=== PATIENT | female | born 1955 | race African-American/Black ===

== ENCOUNTER 2018-05-15 22:23 | Emergency (ER) | payer BC | END 2018-05-15 23:00 | disposition home or self-care (01) | LOC: ERS 22:23 | DX: H66.91 Otitis media, unspecified, right ear (principal); I10 Essential (primary) hypertension | CPT/HCPCS: 99282 ==

== ENCOUNTER 2018-06-12 16:46 | Observation (INO) | payer BC ==
--- NOTE | 2018-06-12 18:50 | CT ---
CT BRAIN: 06/12/2018 PROVIDED CLINICAL HISTORY: Headache. COMPARISON: None. FINDINGS: The ventricular system appears normal in size and morphology. There is no evidence for intracranial hemorrhage or mass effect. The extracranial soft tissues and osseous structures demonstrate an unrem arkable CT appearance, with the exception of a small amount of right probable mastoid fluid. IMPRESSION: No evidence for intracranial hemorrhage or mass effect. POS: [facility]
[2018-06-12] MEDS ORDERED: Metoclopramide 10 MG/10 ML UDCUP ONE (18:55)
[2018-06-12] MEDS ORDERED: Metoclopramide HCl 10 MG TAB ONE (18:55)
[2018-06-12] MEDS ORDERED: diphenhydrAMINE 50 MG/ML VIAL ONE (18:55)
[2018-06-12] MEDS ORDERED: Metoclopramide HCl 10 MG/2 ML VIAL ONE (18:56)
[2018-06-12 19:05] LABS: Hemoglobin 13.9 g/dL (12.0-16.0); Mean Corpuscular HGB CONC 33.1 g/dL (32.0-36.0); Mean Corpuscular Hemoglobin 30.6 pg (27.0-31.0); Mean Corpuscular Volume 92.3 fL (78.0-98.0); Mean Platelet Volume 8.7 fL (7.4-10.4); Platelet Count 194 thou/uL (130-400); RBC Distribution Width 12.5 % (11.5-14.5); Red Blood Cell (RBC) Count 4.55 mill/uL (4.20-5.40); White Blood Cell (WBC) Count 6.8 thou/uL (4.8-10.8)
[2018-06-12 19:19] LABS: Eosinophils 6 % (0-10); Lymphocytes 38 % (21-51); MDiff Complete? YES; Monocytes 5 % (0-10); Neutrophil 47 % (42-75); PLT Morphology Comment Appears Adequate; RBC Morphology Normal; Reactive Lymphocytes 4 % (0-10)
[2018-06-12 19:24] LABS: ALT (SGPT) 14 U/L (8-55); AST (SGOT) 18 U/L (5-34); Albumin 4.3 g/dL (3.4-4.8); Alkaline Phosphatase 108 U/L (40-150); Anion Gap 13 mmol/L (10-20); BUN (Urea Nitrogen) 21 mg/dL (9.8-20.1); Bilirubin, Total 0.4 mg/dL (0.2-1.2); CK (CPK) 160 U/L (29-168); Calc. Creatinine Clearance 0 mL/min (70-130); Calcium 9.3 mg/dL (7.8-10.44); Carbon Dioxide 24 mmol/L (23-31); Chloride 105 mmol/L (98-107); Estimated GFR-MDRD 83; Globulin 3.8 g/dL (2.4-3.5); Glucose 95 mg/dL (80-115); Lipase 18 U/L (8-78); Potassium 3.9 mmol/L (3.5-5.1); Protein, Total 8.1 g/dL (6.0-8.3); Sodium 138 mmol/L (136-145)
[2018-06-12 19:28] LABS: CKMB 1.7 ng/mL (0-6.6); Troponin I Less than 0.010 ng/mL (< 0.028)
--- NOTE | 2018-06-12 19:29 | RAD ---
PORTABLE CHEST ONE VIEW: 06/12/2018 6:11 p.m. HISTORY: Hypertension. Headache. FINDINGS: The heart size is normal. The lungs are well expanded without focal areas of consolidation, pneumoth orax, or pleural effusions. IMPRESSION: No radiographic evidence of acute cardiopulmonary process. POS: [facility]
[2018-06-12] MEDS ORDERED: Labetalol HCl 100 MG/20 ML VIAL ONE (20:31)
[2018-06-12 22:15] LABS: Troponin I Less than 0.010 ng/mL (< 0.028)
--- NOTE | 2018-06-12 23:39 | HP ---
DATE OF ADMISSION: 06/12/2018 CHIEF COMPLAINT: Left arm weakness and numbness. HISTORY OF PRESENT ILLNESS: This is a 62-year-old female. 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 She presented with a complaint of numbness on the face and numbness of the left hand which started on Tuesday, 2 days ago, but she presented as the patient was having persistent numbne ss since 2 days. She denies having any chest pain. She has a history of hypertension and she admits to not following this low salt diet. Otherwise, she denies having any nausea, vomiting, diarrhea or constipation. No dizziness. PAST MEDICAL HISTORY: 1. Hypertension. 2. Hyperlipidemia. 3. Peptic ulcer disease. PAST SURGICAL HISTORY: Hernia repair. SOCIAL HISTORY: The patient is not a known smoker. No history of alcohol, no history of illicit eli g use. She works as a cook at [employer]. FAMILY HISTORY: No significant family history of coronary artery disease, but hypertension runs in t he family. ALLERGIES: No known drug allergies. HOME MEDICATIONS: 1. Docusate 100 mg p.o. b.i.d. 2. Felodipine 5 mg p.o. daily. 3. Hydrocodone. 4. Pantoprazole 40 mg p.o. daily. REVIEW OF SYSTEMS: All 12 systems are reviewed with the patient thoroughly and found to be negative at this time. Systems reviewed are HEENT, CVS, PURCHASING CLERK, respiratory, GI, , musculoskeletal, skin, inte gumentary and psychiatric. The following complete review of systems was negative, unless otherwise mentioned in the HPI or below: Constitutional: Weight loss or gain, sense of well-being, ability to conduct usual activities, exerc ise tolerance. Skin/Breast: Rash, itching, changes in hair growth or loss, nail changes, breast lumps, tenderness, swelling, nipple discharge. Eyes: Vision, double vision, tearing, blind spots, pain. ENT/Mouth: Headaches (location, time of onset, duration, precipitating factors), vertigo, lightheadedness, injury. Vision, double vision, tearing, blind spots, pain, nose b leeding, colds, obstruction, discharge, dental difficulties, gingival bleeding, dentures, neck stiffn ess, pain, tenderness, masses in thyroid or other areas Cardiovascular: Precordial pain, substernal distress, palpitations, syncope, dyspnea on exertion, or thopnea, nocturnal paroxysmal dyspnea, edema, cyanosis, hypertension, heart murmurs, varicosities, ph lebitis, claudication. Respiratory: Pain, shortness of breath, wheezing, stridor, cough, hemoptysis, fever or night sweats Gastrointestinal: Poor appetite, dysphagia, indigestion, abdominal pain, heartburn, eructation, naus ea, vomiting, hematemesis, jaundice, constipation, or diarrhea, abnormal stools (carlene-colored, tarry, bloody, greasy, foul smelling), flatulence, hemorrhoids, recent changes in bowel habits. Genitourinary: Urgency, frequency, dysuria, nocturia, hematuria, polyuria, oliguria, unusual (or kade nge in) color of urine, stones, hesitancy, change in size of stream, dribbling, acute retention or in continence, libido, potency. Musculoskeletal: Pain, swelling, redness or heat of muscles or joints, limitation, of motion, muscular weakness, atrophy, cramps. Neurologic/Psychiatric: Convulsions, paralyses, tremor, incoordination, parasthesias, difficulties w ith memory of speech, sensory or motor disturbances, or muscular coordination (ataxia, tremor), emoti onal problems, anxiety, depression, previous psychiatric care, unusual perceptions, hallucinations. Allergy/Immunologic: Skin rash, anemia, bleeding tendency, polydipsia, polyuria, intolerance to heat or cold. PHYSICAL EXAMINATION: VITAL SIGNS: Blood pressure is 156/87, heart rate is 88, respiratory rate is 18 and saturation 98%. GENERAL: The patient is moderately built and moderately nourished, does not appears to be in acute d istress at this time. HEENT: Atraumatic, normocephalic. PERRLA. Extraocular movements were intact. Oral mucosa is pink and moist. CARDIOVASCULAR: S1, S2 normal. No murmurs, rubs or gallops. LUNGS: Bilateral air entry was equal. No wheezing, no crackles. ABDOMEN: Soft, nontender, no guarding, no rebound tenderness. Bowel sounds normal. MUSCULOSKELETAL: No calf tenderness. No pedal edema. No joint tenderness, no joint swelling. SKIN: No cyanosis or erythema, no rash, no pallor. NEUROLOGIC: Cranial nerve examination is noted. No evidence of any acute neurologic deficits was no fatmata. Motor is the same and sensory are normal both sides. PSYCHIATRIC: No signs of suicidal ideation. No signs of yvan were noted. LABORATORY DATA: WBC 6.8, hemoglobin 13.9, hematocrit is 41.9, platelets of 194. Sodium 130, potass ium 3.9, chloride 105, bicarb is 24, BUN is 21, creatinine 0.84. IMAGING DATA: CT of the head was done which did not show any evidence of acute intracranial hemorrha ge. Chest x-ray was unremarkable. ASSESSMENT: 1. Transient ischemic attack. 2. Uncontrolled hypertension. 3. Moderate dehydration. PLAN: 1. Plan is to closely monitor this patient with neuro checks every 4 hours and we will continue with aspirin at this time. CT head was negative, so we will plan for an MRI of the brain in the morning. If this comes back negative, patient could be discharged home. We will do a PT, OT evaluation prio r to discharge to look for any need for rehabilitation placements. We will check the lipid profile i n the morning. Plan to treat for her LDL is less and LDL is more than 100. 2. Hypertension. We will continue the patient on the lisinopril 10 mg p.o. daily. Advised to keep blood pressure less than 135/75. 3. Deep venous thrombosis prophylaxis, Lovenox. I spent 65 minutes with this patient at the time of dictation.
[2018-06-13 01:17] LABS: Troponin I Less than 0.010 ng/mL (< 0.028)
[2018-06-13] MEDS ORDERED: Ondansetron ODT 4 MG TAB SL PRN (03:17)
[2018-06-13] MEDS ORDERED: Ondansetron HCl/PF 4 MG/2 ML Vial IVP PRN (03:17)
[2018-06-13] MEDS ORDERED: Acetaminophen 325 MG TAB PO PRN (03:17)
[2018-06-13] MEDS ORDERED: Ondansetron ODT 4 MG TAB PO PRN (03:36)
[2018-06-13] MEDS ORDERED: hydrALAZINE 20 MG/ML VIAL SLOW IVP PRN (03:36)
[2018-06-13] MEDS ORDERED: HYDROcodone/Acetaminophen 5/325 mg Tablet PO PRN (03:36)
[2018-06-13 03:59] VITALS: BMI 35.3
[2018-06-13] MEDS: Docusate 100 MG CAP PO SCH ×2 (08:49→20:29)
[2018-06-13] MEDS: Aspirin 81 mg Enteric Coated Tablet PO SCH (08:51)
[2018-06-13] MEDS: Lisinopril 10 MG TAB PO SCH (08:52)
[2018-06-13] MEDS: Heparin 5,000 UNITS/ML VIAL SC SCH ×2 (08:54→20:28)
[2018-06-13] MEDS ORDERED: Famotidine/PF 20 mg/2ml Vial SLOW IVP SCH (09:00)
[2018-06-13] MEDS ORDERED: Lorazepam 2 MG/ML VIAL SLOW IVP SCH (09:00)
[2018-06-13] MEDS ORDERED: Enoxaparin Sodium 40 MG/0.4 ML SYRINGE SC SCH (09:00)
[2018-06-13] MEDS ORDERED: Docusate 100 MG CAP PO SCH (09:00)
--- NOTE | 2018-06-13 12:47 | ULT ---
ULTRASOUND DOPPLER DUPLEX CAROTID: Date: 06-13-18 History: 62-year-old female with stroke symptoms: left upper extremity weakness, dizziness. Technique: Grayscale, color flow, and spectral analysis of major arteries of neck. FINDINGS: There is mild atherosclerotic plaque at the bilateral proximal internal carotid arteries, including c arotid bulbs and proximal external carotid arteries. High peak systolic velocities in the internal carotid arteries are 70 cm/s on the right and 40 cm/s o n the left. ICA/CCA ratios are 0.9 on the right and 0.4 on the left. Vertebral artery flow is antegrade bilaterally. IMPRESSION: 1. Mild atherosclerotic plaque at the origins of the bilateral internal carotid arteries. 2. No hemodynamically significant stenosis. POS: [facility]
--- NOTE | 2018-06-13 14:58 | MRI ---
BRAIN MRI WITHOUT CONTRAST: Date: 06/13/18 COMPARISON: None. HISTORY: Tingling, numbness, headaches. TECHNIQUE: Multiplanar, multisequence MR imaging of the brain is obtained without contrast. FINDINGS: The diffusion-weighted imaging demonstrates no evidence for acute infarction. The axial gradient echo imaging demonstrates no evidence for intracranial hemorrhage. There is a nonspecific right-sided mastoid effusion. Arterial flow-voids at axial level of skull base appear grossly unremarkable on the T2-weighted image . Multiple subcentimeter foci of increased T2 and FLAIR signal are seen within the periventricular, shannon p, and subcortical white matter, evidence of small vessel disease. Regional bone marrow signal intens ity is within normal limits. There is degenerative disc disease at C4-5, incompletely assessed, with probable mild central canal and bilateral neural foraminal stenosis, right greater than left. IMPRESSION: 1. Nonspecific right mastoid effusion. 2. Small vessel disease. 3. No evidence for intracranial hemorrhage or acute infarction. POS: [facility]
[2018-06-13] MEDS: Famotidine 20 MG TAB PO SCH (20:29)
[2018-06-13] MEDS ORDERED: Atorvastatin Calcium 40 MG TAB PO SCH (21:00)
--- NOTE | 2018-06-14 00:34 | CON ---
DATE OF CONSULTATION: 06/13/2018 REFERRING PHYSICIAN: Mehul Shoemaker MD REASON FOR CONSULTATION: Left-sided numbness. HISTORY OF PRESENT ILLNESS: Ms. Wynn is a pleasant 62-year-old -[place] female who has bee n consulted for evaluation of left-sided numbness. The patient reports that over the past few days, she has been having episodes of numbness on the left side of the face, arm, and leg. These episodes are intermittent and there are no exacerbating or alleviating factors. She also gets dizziness, wher e she feels as if everything is spinning and headache in the top of the head. She notes that she has been under a lot of stress, as her youngest son is being deployed for service and she is ve ry concerned about that. She notes that when she is stressed, these symptoms seemed to be more frequ ent. As her symptoms were happening more frequently on yesterday, she decided to present to the [facility]. She currently denies any headache, chest pain, palpitation, nausea, vomiting, abdominal pain, numbness, tingling, or weakness. PAST MEDICAL HISTORY: Significant for hypertension, hyperlipidemia, peptic ulcer disease. PAST SURGICAL HISTORY: Significant for hernia repair. SOCIAL HISTORY: She denies smoking, alcohol use, or illicit drug use. 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 FAMILY HISTORY: Noncontributory. CURRENT MEDICATIONS: Please review MAR. ALLERGIES: No known drug allergies. REVIEW OF SYSTEMS: As mentioned in HPI, otherwise negative. PHYSICAL EXAMINATION: VITAL SIGNS: Blood pressure of 137/61, pulse of 62, temperature of 98.1, respirations 16, O2 sats 99 % on room air. GENERAL: Well-developed, well-nourished female in no apparent distress. RESPIRATORY: Clear to auscultation bilaterally. CARDIOVASCULAR: Regular rate and rhythm. NEUROLOGIC: Mental status: The patient is awake, alert, oriented x3. Speech and language: Fluent speech. Cranial nerves: Pupils are 3 mm and reactive. Visual idas are intact. Extraocular muscl es are intact. No nystagmus noted. Face is symmetric. Tongue and uvula are midline. Motor exam sh owed normal tone and bulk with 5/5 strength in both upper and lower extremities. Sensory: Sensation is intact and symmetric. Deep tendon reflexes, 2+ reflexes in both upper and lower extremities. Ba binski: Plantar responses flexion bilaterally. Coordination intact to [id number] and finger tapping bilaterally. LABORATORY DATA: Reviewed, which included CBC and CMP, which are essentially normal. IMAGING STUDIES: MRI brain without contrast was reviewed, which showed no acute intracranial abnorma lity. Carotid Doppler results were reviewed, which showed no acute hemodynamically significant steno sis on either side. IMPRESSION: 1. Left-sided numbness. 2. Increased stress and anxiety. 3. Headaches. Ms. Wynn is a pleasant 62-year-old female, who presented with intermittent episode s of left-sided numbness. This could be suggestive of transient ischemic attack. This could also be secondary to increased stress and anxiety. I have reviewed her MRI brain, which is essentially norm al. I have advised her to follow up with her primary care physician. I have also advised her to lyn e aspirin 81 mg daily for secondary stroke prevention. The patient is okay to be discharged to home from neurological standpoint. No further neurological workup needed from my standpoint. Thank you for consultation.
[2018-06-14 05:37] LABS: #Eosinphils 0.2 thou/uL (0.0-0.7); #Monocytes 0.5 thou/uL (0.11-0.59); #Neutrophils 1.9 thou/uL (1.40-6.50); %Basophils 0.9 % (0.0-1.0); %Eosinophils 4.8 % (0.0-10.0); %Monocytes 9.8 % (0.0-10.0); %Neutrophils 41.5 % (42.0-75.0); Hemoglobin 12.6 g/dL (12.0-16.0); Mean Corpuscular HGB CONC 34.2 g/dL (32.0-36.0); Mean Corpuscular Hemoglobin 31.7 pg (27.0-31.0); Mean Corpuscular Volume 92.8 fL (78.0-98.0); Mean Platelet Volume 8.7 fL (7.4-10.4); Platelet Count 172 thou/uL (130-400); RBC Distribution Width 12.5 % (11.5-14.5); Red Blood Cell (RBC) Count 3.98 mill/uL (4.20-5.40); White Blood Cell (WBC) Count 4.6 thou/uL (4.8-10.8)
[2018-06-14 05:40] LABS: Anion Gap 12 mmol/L (10-20); BUN (Urea Nitrogen) 19 mg/dL (9.8-20.1); Calc. Creatinine Clearance 108 mL/min (70-130); Calcium 9.1 mg/dL (7.8-10.44); Carbon Dioxide 27 mmol/L (23-31); Cardiac Risk 3.8 (Less than 4.5); Chloride 105 mmol/L (98-107); Cholesterol 195 mg/dl (< 200 Desired); Estimated GFR-MDRD 88; Glucose 93 mg/dL (80-115); HDL Cholesterol 52 mg/dL (>60 Neg Risk); LDL Cholesterol, Calculated 130 mg/dL; Potassium 3.6 mmol/L (3.5-5.1); Sodium 140 mmol/L (136-145); Triglycerides 65 mg/dL (Less than 150)
--- NOTE | 2018-06-14 06:45 | PDOC.PN ---
- Subjective Encounter Start Date: 06/13/18 Encounter Start Time: 10:30 Subjective: pt up in bed no complains - Objective Resuscitation Status: Resuscitation Status FULL:Full Resuscitation Vital Signs & Weight: Vital Signs (12 hours) Temp Pulse Resp BP Pulse Ox 06/14/18 04:00 98.3 F 65 18 129/72 96 06/14/18 00:00 97.3 F L 60 18 136/56 L 96 06/13/18 20:10 97.7 F 64 18 06/13/18 20:00 97.7 F 64 18 145/79 H 95 Weight Weight 206 lb 4.8 oz I&O: 06/12/18 06/13/18 06/14/18 06:59 06:59 06:59 Intake Total 510 602 Balance 510 602 Result Diagrams: 06/14/18 04:50 06/14/18 04:50 Phys Exam - Physical Examination HEENT: PERRLA, moist MMs, sclera anicteric, TM's clear, oral pharynx no lesions , 2+ tonsils Neck: no nodes, no JVD, supple, full ROM Respiratory: no wheezing, no rales, no rhonchi, wheezing present, clear to auscultation bilateral Cardiovascular: RRR, no significant murmur, no rub, gallop, irregular Gastrointestinal: soft, non-tender, no distention, positive bowel sounds Dx/Plan (1) TIA (transient ischemic attack) Code(s): G45.9 - TRANSIENT CEREBRAL ISCHEMIC ATTACK, UNSPECIFIED Status: Acute (2) HTN (hypertension) Code(s): I10 - ESSENTIAL (PRIMARY) HYPERTENSION Status: Acute - Plan will await for echo/carotid and MRI brain * . Review of Systems - Review of Systems ENT: negative: Ear Pain, Ear Discharge, Nose Pain, Nose Discharge, Nose Congestion, Mouth Pain, Mouth Swelling, Throat Pain, Throat Swelling, Other Respiratory: negative: Cough, Dry, Shortness of Breath, Hemoptysis, SOB with Excertion, Pleuritic Pain, Sputum, Wheezing Cardiovascular: negative: chest pain, palpitations, orthopnea, paroxysmal nocturnal dyspnea, edema, light headedness, other Gastrointestinal: negative: Nausea, Vomiting, Abdominal Pain, Diarrhea, Constipation, Melena, Hematochezia, Other - Medications/Allergies Allergies/Adverse Reactions: Allergies Allergy/AdvReac Type Severity Reaction Status Date / Time No Known Allergies Allergy Verified 06/13/18 03:42 Medications: Current Medications Hydrocodone Bitart/Acetaminophen (Sipsey 5/325) 1 tab PO Q4H PRN PRN Reason: Moderate Pain (4-6) Aspirin (Ecotrin) 81 mg PO DAILY [facility] Last Admin: 06/13/18 08:51 Dose: 81 mg Atorvastatin Calcium (Lipitor) 40 mg PO HS [facility] Last Admin: 06/13/18 20:29 Dose: 40 mg Docusate Sodium (Colace) 100 mg PO BID [facility] Last Admin: 06/13/18 20:29 Dose: 100 mg Enoxaparin Sodium (Lovenox) 40 mg SC 0900 [facility] Last Admin: 06/13/18 08:53 Dose: 40 mg Famotidine (Pepcid) 20 mg PO BID [facility] Last Admin: 06/13/18 20:29 Dose: 20 mg Felodipine (Plendil) 5 mg PO DAILY [facility] Last Admin: 06/13/18 08:51 Dose: 5 mg Heparin Sodium (Porcine) (Heparin) 5,000 units SC Q12HR [facility] Last Admin: 06/13/18 20:28 Dose: 5,000 units Hydralazine HCl (Apresoline) 10 mg SLOW IVP Q4H PRN PRN Reason: BP > 220/110 Lisinopril (Zestril) 10 mg PO DAILY [facility] Last Admin: 06/13/18 08:52 Dose: 10 mg Ondansetron HCl (Zofran Odt) 4 mg PO Q6H PRN PRN Reason: Nausea/Vomiting Pantoprazole Sodium (Protonix) 40 mg PO DAILY [facility] Last Admin: 06/13/18 08:52 Dose: 40 mg Sodium Chloride (Flush - Normal Saline) 10 ml IVF Q12HR [facility] Last Admin: 06/13/18 20:48 Dose: Not Given Sodium Chloride (Flush - Normal Saline) 10 ml IVF PRN PRN PRN Reason: Saline Flush
[2018-06-14] MEDS: Lisinopril 10 MG TAB PO SCH (08:49)
[2018-06-14] MEDS: Docusate 100 MG CAP PO SCH (08:49)
[2018-06-14] MEDS: Famotidine 20 MG TAB PO SCH (08:49)
[2018-06-14] MEDS: Aspirin 81 mg Enteric Coated Tablet PO SCH (08:49)
[2018-06-14 12:07] VITALS: BP 132/59; TEMP 98.7
--- NOTE | 2018-06-14 13:36 | DIS ---
DATE OF ADMISSION: 06/13/2018 DATE OF DISCHARGE: 06/14/2018 DISCHARGE DIAGNOSES: 1. Left upper arm weakness most likely transient ischemic attack. 2. Hypertension. 3. Hyperlipidemia. 4. Peptic ulcer disease. HOSPITAL COURSE: The patient is a very pleasant 62-year-old female who initially presented to the [facility] with complaints of left arm weakness and numbness which was ongoing for 2 days. The patient i nitially went to her PCP who then referred her to the ER for further evaluation. The patient underwe nt a CT head which was essentially negative. She also had a CT, MRI, which was negative. She did salguero ve carotid Dopplers and an echocardiogram done. Carotid Dopplers indicated mild atherosclerotic plaq ue at the origins of the bilateral internal carotid arteries and the echo indicated some diastolic dy sfunction, otherwise essentially normal. The patient was seen by Neurology who thought that her left arm numbness and weakness was most likely secondary to her stressors. The patient did have choleste rol checked and her LDL. Her cholesterol was 195. Her LDL was 130. She was put on statin. DISCHARGE MEDICATIONS: Aspirin 81 mg daily, atorvastatin 20 mg daily, lisinopril 20 mg which was b umped up from 10 mg to 20 mg daily, pantoprazole 40 mg daily, and felodipine 5 mg p.o. daily. PHYSICAL EXAMINATION: VITAL SIGNS: Temperature of 98.7, 64, 16, 95% room air, 132/59. GENERAL: She is awake, alert, oriented x3. Does not appear in distress. CARDIOVASCULAR: S1, S2 present. No murmurs, rubs or gallops. ABDOMEN: Soft, nontender. Bowel sounds present x2. NEUROLOGICAL: She has no deficits. Again, she will be discharged home. She will follow up with her PCP.
== END 2018-06-14 13:33 | disposition home or self-care (01) ==
LOC: ERS 16:46 → 2SE 06-13 02:23
PROVIDERS: ADMIT Internal Medicine; ATTEND Internal Medicine
DX: R29.898 Other symptoms and signs involving the musculoskeletal system (principal); I10 Essential (primary) hypertension; E78.5 Hyperlipidemia, unspecified; K27.9 Peptic ulcer, site unspecified, unspecified as acute or chronic, without hemorrhage or perforation; F41.9 Anxiety disorder, unspecified; Z79.82 Long term (current) use of aspirin; Z79.899 Other long term (current) drug therapy
CPT/HCPCS: 36415; 70450; 70551; 71045; 80048; 80061; 82550; 82553; 83690; 84484; 85025; 93005; 93306; 93880; 96365; 96372; 96375; A4216; G0378; G8978-GP-CJ; G8979-GP-CJ; G8980-GP-CJ; G8987-GO-CI; G8988-GO-CI; G8989-GO-CI; G8996-GN-CH; G8997-GN-CH; J1200; J1644; J1650; J2060; J2765; S0028

== ENCOUNTER 2018-06-16 20:18 | Observation (INO) | payer BC ==
[2018-06-16 20:42] LABS: #Basophils 0.1 thou/uL (0.0-0.2); #Eosinphils 0.2 thou/uL (0.0-0.7); #Lymphocytes 2.6 thou/uL (1.20-3.40); #Monocytes 0.6 thou/uL (0.11-0.59); #Neutrophils 2.8 thou/uL (1.40-6.50); %Eosinophils 3.7 % (0.0-10.0); %Lymphocytes 41.2 % (21.0-51.0); %Monocytes 10.1 % (0.0-10.0); Hemoglobin 13.8 g/dL (12.0-16.0); Mean Corpuscular HGB CONC 34.4 g/dL (32.0-36.0); Mean Corpuscular Volume 92.9 fL (78.0-98.0); Mean Platelet Volume 8.7 fL (7.4-10.4); Platelet Count 188 thou/uL (130-400); RBC Distribution Width 12.4 % (11.5-14.5); Red Blood Cell (RBC) Count 4.33 mill/uL (4.20-5.40); White Blood Cell (WBC) Count 6.3 thou/uL (4.8-10.8)
--- NOTE | 2018-06-16 20:46 | CT ---
CT HEAD NONCONTRAST: 06/16/18 INDICATION: Left sided paresthesias. Reference made to 06/12/18. FINDINGS: There is no evidence of acute intracranial hemorrhage, mass effect, midline shift or ventriculomegaly . Mild chronic ischemic disease of the cerebral white matter is present. There is right mastoid opaci fication. IMPRESSION: Multifocal hypoattenuation indicating microvascular ischemic disease. There is no acute intracranial hemorrhage or mass effect. Telephone call to ER physician, Tor Smith, placed at 2030 hours, 06/16/18. Code CR POS: [facility]
[2018-06-16 20:49] LABS: PTT 31.9 SEC (22.9-36.1); Prothrombin Time 13.1 SEC (12.0-14.7)
[2018-06-16 20:56] LABS: ALT (SGPT) 25 U/L (8-55); AST (SGOT) 28 U/L (5-34); Albumin 4.2 g/dL (3.4-4.8); Alkaline Phosphatase 112 U/L (40-150); Anion Gap 13 mmol/L (10-20); BUN (Urea Nitrogen) 19 mg/dL (9.8-20.1); Bilirubin, Total 0.5 mg/dL (0.2-1.2); Calc. Creatinine Clearance 0 mL/min (70-130); Calcium 9.2 mg/dL (7.8-10.44); Carbon Dioxide 25 mmol/L (23-31); Chloride 106 mmol/L (98-107); Estimated GFR-MDRD 70; Globulin 3.5 g/dL (2.4-3.5); Glucose 93 mg/dL (80-115); Potassium 4.2 mmol/L (3.5-5.1); Protein, Total 7.7 g/dL (6.0-8.3); Sodium 140 mmol/L (136-145)
[2018-06-16 20:59] LABS: CKMB 1.9 ng/mL (0-6.6); Troponin I Less than 0.010 ng/mL (< 0.028)
[2018-06-17 01:52] VITALS: BMI 37.1
--- NOTE | 2018-06-17 12:42 | HP ---
PRIMARY CARE PROVIDER: Rena Will PA-C. and Dr. Benny Coronado. CHIEF COMPLAINT: Left-sided numbness. HISTORY OF PRESENT ILLNESS: This is a 62-year-old female patient with a history of hypertension, renard louis followed by Rena Will as an outpatient. She was recently admitted on 06/12/2018 with left -sided weakness and numbness. She had a CVA workup done with normal MRI, stable carotid Dopplers, wa s seen by Neurology at that time and diagnosed with a TIA and discharged home on a statin, antihypert ensives, and low dose aspirin. She was at home and was in her usual state of health and then last ni ght developed left lip numbness and left arm numbness as well. She represented to the emergency depa rtment for evaluation. She had a CT of her brain in the ED last night, which revealed no active dise ase and she is now being admitted for further evaluation for possible progression of the TIA versus d evelopment of a CVA. Of note, she has been under extreme stress over the past month. She states that her 21-year-old son decided to enlist in the [employer] and she just found out that he, during basic training, was going to be unreachable by her for 3 months. She has been more anxious and stressed and possibly having panic attacks over the past few weeks due to this news. PAST MEDICAL HISTORY: Hypertension, hyperlipidemia, peptic ulcer disease. MEDICATIONS: Include aspirin 81 mg daily, atorvastatin 20 mg daily, lisinopril 20 mg daily, Protonix 40 mg daily, felodipine 5 mg daily. PAST SURGICAL HISTORY: History of gastric bypass, history of bilateral knee replacement. SOCIAL HISTORY: She works as a cook for [employer]. No smoking, no alcohol. She is and live s at home. She has 2 sons, 21 and 23. ALLERGIES: No known drug allergies. REVIEW OF SYSTEMS: As per the history of present illness. General: She denies any recent fevers, c hills, or recent illness. HEENT: No headache, visual or hearing changes. Cardiac: No chest pain, shortness of breath, or palpitations. Pulmonary: Denies cough or hemoptysis. Gastrointestinal: Hi story of reflux disease. No melena, no hematochezia. Genitourinary: Denies dysuria or hematuria. Neurologic: As per the history of present illness. Psychiatric: Positive for anxiety, possible kyle ic episodes. PHYSICAL EXAMINATION: VITAL SIGNS: Temperature 98.3, pulse is 66, respirations 16, blood pressure 148/85, pulse ox is 96% on room air. GENERAL: She is awake and alert, in no acute distress. Speech is clear and fluid. HEENT: Mucosa is moist. NECK: Supple. HEART: Regular rate and rhythm without murmurs. LUNGS: Clear bilaterally. ABDOMEN: Soft. EXTREMITIES: No edema. She admits to some left-sided calf tenderness over the past few days and sli ght swelling. She has minimal swelling bilaterally. NEUROLOGIC: Cranial nerves II-XII grossly intact. Strength is 5/5 in upper and lower extremities. Sensation is intact. She denies any numbness or tingling at this time. LABORATORY DATA: Sodium 140, potassium 4.2, chloride 106, CO2 of 25, BUN and creatinine 19 and 0.98 with a GFR of 70, serum glucose of 93, calcium 9.2. Cardiac enzymes were negative. PT and PTT were normal. CBC with a white blood cell count of 6,300, hemoglobin and hematocrit 13.8 and 40.2, platele ts of 188. A repeat CT of the brain last night showed no active disease, but multifocal hypoattenuat ion, likely secondary to microvascular ischemic disease. MRI from last admission showed no active di sease. Carotid Doppler from last admission revealed mild plaque, but no stenosis. ASSESSMENT AND PLAN: This is a 62-year-old female patient with a left-sided paresthesia, workup as d escribed above. I reviewed the consultation by Dr. Romero on 06/13/2018. Her symptoms are likely seco ndary to stress and anxiety as well as elevation in her blood pressure. 1. Paresthesia, secondary to anxiety. We will give a trial of beta sahil, which may help with her blood pressure as well as the anxiety and monitor her heart rate closely. 2. No sign of cerebrovascular accident. We will monitor 1 more night for any progression of her sym ptoms. 3. Recent transient ischemic attack. We will continue aspirin and statin. 4. Hypertension. We will continue Plendil and lisinopril and start beta sahil cautiously. 5. Left leg pain and swelling. We will rule out deep venous thrombosis with venous Doppler. 6. Anxiety. We will follow up as an outpatient. Consider counseling and medication management as brian masters
--- NOTE | 2018-06-17 13:55 | ULT ---
ULTRASOUND WITH DOPPLER DUPLEX VENOUS LOWER EXTREMITY LEFT: HISTORY: 62-year-old female with left calf pain. TECHNIQUE: Color flow Doppler, spectral waveform analysis of pulsed Doppler, and joyce-scale imaging with asmita gume and augmentation, were used to evaluate the left common femoral, femoral, popliteal, posterior t ibial, and superficial femoral, veins; and the proximal portions of the profunda femoral and greater saphenous, veins. FINDINGS: There is normal compressibility, demonstration of blood flow by color Doppler and pulsed Doppler, and response to augmentation, in all interrogated veins. IMPRESSION: Negative. No deep vein thrombosis in the left lower extremity. jn[] POS: [facility]
[2018-06-17] MEDS ORDERED: Atorvastatin Calcium 20 MG TAB PO SCH (21:00)
[2018-06-18 07:43] VITALS: BP 143/81; TEMP 98
[2018-06-18] MEDS ORDERED: Aspirin 81 mg Enteric Coated Tablet PO SCH (09:00)
[2018-06-18] MEDS ORDERED: Lisinopril 20 MG TAB PO SCH (09:00)
--- NOTE | 2018-06-18 09:28 | DIS ---
DATE OF ADMISSION: 06/16/2018 DATE OF DISCHARGE: 06/18/2018 PRIMARY CARE PHYSICIAN: Benny Coronado M.D. and LATASHA Will. ADMISSION DIAGNOSES: Paraesthesia, numbness and tingling, rule out transient ischemic attack. DISCHARGE DIAGNOSIS: Anxiety. OTHER DIAGNOSES: 1. Hypertension. 2. Hyperlipidemia. CONSULTATIONS: None. PROCEDURES: Telemetry monitoring on the stroke unit, venous Doppler, CT of the brain. HOSPITAL COURSE: This is a 62-year-old female patient of Dr. Benny Coronado's and LATASHA Will wit h a recent admission on 06/12/2018 with similar symptoms and had a negative workup for CVA including MRI of the brain, carotid Doppler, and a Neurology consult with Dr. Romero. She was discharged home an d returned to the hospital on the day of admission with similar symptoms. Upon more further history taking, she has been under extreme stress over the past several weeks. Her son decided to enlist in the [employer] and she has been stressed and anxious about that. During her hospitalization, she improv ed. She had no further symptoms. A CT of the brain showed no active disease. She admitted to some swelling and pain in her left leg. Her venous Doppler was negative. Her blood pressure in the emerg ency department was quite elevated up over 200/100. It has been in the 130s to 140s during her hospi talization. She had attempted starting metoprolol, but she did not tolerate that due to episode of b radycardia. At this point, she is stable for discharge home. Her symptoms are resolved. I had a di scussion with her about the anxiety and recommended starting therapy. She is considering counseling, but we will start as needed medicine upon discharge at this time. DISCHARGE PHYSICAL EXAMINATION: VITAL SIGNS: Temperature 98.0, pulse of 49-51, respirations 16, blood pressure 143/81, pulse ox is 9 7% on room air. GENERAL: She is awake and alert. Speech is clear. NECK: Supple. HEART: Bradycardic. LUNGS: Clear. ABDOMEN: Soft. EXTREMITIES: With no clubbing or cyanosis, trace edema in bilateral extremities. NEUROLOGIC: Cranial nerves II-XII are intact. Strength is 5/5 in upper and lower extremities. Sens ation is intact in upper and lower extremities. DISCHARGE LABORATORY DATA: Again, venous Doppler was negative. CT of the brain showed no active dis ease. MRI from last admission showed no active disease. Carotid Dopplers were stable. DISCHARGE MEDICATIONS: Include aspirin 81 mg daily, Lipitor 20 mg daily, Plendil 5 mg daily, lisinop ril 20 mg daily, Protonix p.r.n., and she is to start Xanax 0.25 mg p.r.n. anxiety. FOLLOWUP INSTRUCTIONS: Patient to follow up with Dr. Coronado's office in 1 week.
== END 2018-06-18 11:44 | disposition home or self-care (01) ==
LOC: ERS 20:18 → 2SE 06-17 00:25
PROVIDERS: ADMIT Family Medicine; ATTEND Family Medicine
DX: F41.9 Anxiety disorder, unspecified (principal); I10 Essential (primary) hypertension; E78.5 Hyperlipidemia, unspecified; Z79.82 Long term (current) use of aspirin; Z79.899 Other long term (current) drug therapy; Z86.73 Personal history of transient ischemic attack (TIA), and cerebral infarction without residual deficits
CPT/HCPCS: 36416; 70450; 80053; 82553; 84484; 85025; 85610; 85730; 93005; G0378

== ENCOUNTER 2020-06-09 15:31 | Outpatient (CLI) | payer BC ==
--- NOTE | 2020-06-09 16:11 | ULT ---
Ultrasound right ankle: 06/09/2020 HISTORY: 64-year-old female with painful lump at right lateral ankle for one year. FINDINGS: There is no evidence of solid or cystic mass. IMPRESSION: No sonographic abnormality found at the site of the palpable lump at the lateral right ankle. Conside r MRI with and without contrast.
== END 2020-06-09 15:32 | disposition home or self-care (01) ==
LOC: BICULT 15:31
PROVIDERS: ATTEND Nurse Practitioner Family
DX: R22.41 Localized swelling, mass and lump, right lower limb (principal)
CPT/HCPCS: 76999